=== PATIENT | male | born 1970 | race Caucasian/White ===

== ENCOUNTER 2019-10-26 08:56 | Emergency (ER) | payer OTHER ==
[~2019-10-26] VITALS: Ht 165.1 cm; Wt 56.2 kg
[2019-10-26 09:04] VITALS: Ht 165.1 cm; Wt 56.2 kg
[2019-10-26 10:11] VITALS: BP 122/75
== END 2019-10-26 10:11 | disposition home or self-care (01) ==
LOC: ED 08:56
DX: F41.1 Generalized anxiety disorder (principal); I10 Essential (primary) hypertension
CPT/HCPCS: Q0092

== ENCOUNTER 2019-11-05 18:58 | Emergency (ER) | payer OTHER ==
[~2019-11-05] VITALS: Ht 172.7 cm; Wt 54.4 kg
[2019-11-05 19:02] VITALS: Ht 172.7 cm; Wt 54.4 kg
[2019-11-05 20:31] VITALS: BP 161/80
== END 2019-11-05 20:31 | disposition home or self-care (01) ==
LOC: ED 18:58
DX: F41.9 Anxiety disorder, unspecified (principal); R00.2 Palpitations; I10 Essential (primary) hypertension